=== PATIENT | female | born 1995 | race Caucasian/White ===

== ENCOUNTER 2020-02-10 04:16 | Emergency (ER) | payer SELFPAY ==
[~2020-02-10] VITALS: Ht 165.1 cm; Wt 68.0 kg
[2020-02-10 04:17] VITALS: BP 134/76
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
--- NOTE | 2020-02-10 04:23 | NUR ---
ERMD AT BEDSIDE.
[2020-02-10 04:30] VITALS: BP 134/76
--- NOTE | 2020-02-10 04:30 | NUR ---
PT ASSESSED, TREATED, AND D/C BY ERMD. NO NURSING INTERVENTION NEEDED.
--- NOTE | 2020-02-10 04:30 | NUR ---
Patient discharged with v/s stable. Written and verbal after care instructions given and explained. Patient verbalized understanding. In custody WITH [facility]. All questions addressed prior to discharge. Advised to follow up with PMD. D/C PAPERWORK GIVEN TO OFFICER [facility] #[id number].
== END 2020-02-10 04:30 ==
LOC: MED 04:16
DX: R03.0 Elevated blood-pressure reading, without diagnosis of hypertension (principal); Z04.1 Encounter for examination and observation following transport accident; Z02.89 Encounter for other administrative examinations
CPT/HCPCS: 99283